=== PATIENT | male | born 1980 | race Two or more races ===

== ENCOUNTER 2023-10-27 19:05 | Emergency (ER) | payer MEDICAID ==
[2023-10-27 20:30] VITALS: BP 143/96; O2SAT 100
--- NOTE | 2023-10-27 22:05 | ED Physician Documentation ---
PD HPI OPHTHO - Stated complaint Stated Complaint: RT EYE IRRITATION - Chief complaint Chief Complaint: Heent - Additional information Additional information: 43-year-old male with no pertinent past medical history does not speak Malagasy his daughter is at bedside who is providing mandrin translation per patient request. Patient says that he was cooking at home and he excellently got oil sprayed to his face he started to experience immediate pain to his right eye says that it feels like there is a foreign body in there such as sand. He has no vision changes he does not wear contacts. PD PAST MEDICAL HISTORY - Past Medical History Past Medical History: No Cardiovascular: None Respiratory: None Neuro: None Endocrine/Autoimmune: None GI: None : None HEENT: None Psych: None Musculoskeletal: None Derm: None - Past Surgical History Past Surgical History: No - Present Medications Home Medications: Ambulatory Orders Medication Instructions Recorded Confirmed No Known Home Medications 10/27/23 10/27/23 - Allergies Allergies/Adverse Reactions: Allergies Allergy/AdvReac Type Severity Reaction Status Date / Time No Known Drug Allergies Allergy Verified 10/27/23 20:25 - Social History Does the pt smoke?: No Smoking Status: Never smoker Does the pt drink ETOH?: No Does the pt have substance abuse?: No - Immunizations Immunizations are current?: Yes - POLST Patient has POLST: No PD ED PE NORMAL - Vitals Vital signs reviewed: Yes - General General: Alert and oriented X 3, No acute distress, Well developed/nourished - Psych Psych: Normal mood, Normal affect PD ED PE EXPANDED - Eyes Eyes: PERRL, EOMI, Right eye, No eyelid FB (everted), Nl conjunctiva/sclera, Corneal abrasion, Fluorescein uptake, Anterior chambers clear. No: Eyelid injury, Eyelid swelling, Eyelid erythema, Eyelid embedded FB, Injected conj/sclera, Exudate, Corneal FB Results - Vitals Vitals: Vital Signs - 24 hr 10/27/23 20:18 Temperature 36.3 C L Heart Rate 77 Respiratory 16 Rate Blood Pressure 143/96 H O2 Saturation 100 Oxygen O2 Source Room air PD Medical Decision Making - ED course ED course: 43-year-old male presents emergency department for right eye irritation. Proparacaine was placed in patient's right eye with fluorescein staining and he did appear to have a very small corneal abrasion. For pain we went ahead and gave patient some erythromycin topical ointment to his right eye. He denies any vision changes normal vision acuity. Patient is told if after 2 days he does not have any improvement of symptoms with Tylenol ibuprofen and erythromycin topical ointment to present to ophthalmology for further evaluation. He does not wear contacts. ER return precautions given. All questions answered with patient's daughter at bedside who assisted with translation from Malagasy to mandrin. Departure - Departure Disposition: 01 Home, Self Care Clinical Impression: Corneal abrasion, right Instructions: Corneal Injury, ED Eye Injury Corneal Abrasion Comments: Thank you for trusting us with your care. We have given you naproxen also known as Aleve here in the emergency department going home you can take 500 mg of Aleve every 12 hours for pain to your right eye. We are also sending you home with some topical lubricating antibiotic ointment for your right eye if your right eye does not feel better within the next day or 2 please report to an job developer for further evaluation. You can also take 1000 mg of Tylenol every 8 hours for your right eye pain. Please come back to the emergency department if you are noticing any drainage that is yellow or green, worsening eye pain or new vision changes. Forms: PCP List Discharge Date/Time: 10/27/23 23:17
[2023-10-27] MEDS: NAPROXEN 250 MG TABLET PO STA (22:48)
[2023-10-27] MEDS: ERYTHROMYCIN OPHTH OINT 1 GM TUBE RIGHTEYE STA (22:49)
[2023-10-27] MEDS: PROPARACAINE 0.5% OPHTH DROPS 15 ML RIGHTEYE STA (22:51)
== END 2023-10-27 23:17 | disposition home or self-care (01) ==
LOC: ED 19:05
DX: S05.01XA Injury of conjunctiva and corneal abrasion without foreign body, right eye, initial encounter (principal); X58.XXXA Exposure to other specified factors, initial encounter; Y93.G3 Activity, cooking and baking
CPT/HCPCS: 99283; 99284; A9270; J3490